=== PATIENT | male | born 1960 | race Caucasian/White ===

== ENCOUNTER 2020-04-30 01:14 | Emergency (ER) | payer MEDICARE, MEDICAID ==
[~2020-04-30] VITALS: Ht 170.2 cm; Wt 90.9 kg
[~2020-04-30 01:14] MED LIST: FAMO40TA73 PO
[2020-04-30 02:03] VITALS: BP 178/118
== END 2020-04-30 02:04 | disposition home or self-care (01) ==
LOC: ER 01:15
DX: M79.602 Pain in left arm (principal); E78.00 Pure hypercholesterolemia, unspecified; I10 Essential (primary) hypertension; G89.29 Other chronic pain; Z98.890 Other specified postprocedural states; Z56.0 Unemployment, unspecified; Z88.8 Allergy status to other drugs, medicaments and biological substances; Z79.899 Other long term (current) drug therapy
CPT/HCPCS: 93005; 99283

== ENCOUNTER 2024-03-23 05:27 | Day surgery (SDC) | payer BC, MEDICAID ==
[2024-03-17 15:06] LABS: BASOPHILS % (AUTO) 0.5 % (0-1); EOSINOPHILS # (AUTO) 0.2 X10'3 (0-0.9); EOSINOPHILS % (AUTO) 2.6 % (0-6); LYMPHOCYTES # (AUTO) 2.2 X10'3 (1.1-4.8); LYMPHOCYTES % (AUTO) 24.2 % (21-51); MEAN CORPUSCULAR HEMOGLOBIN 30.8 PG (27.0-31.0); MEAN CORPUSCULAR HGB CONC 34.1 g/dL (33.0-36.5); MEAN CORPUSCULAR VOLUME 90.3 FL (78-98); MONOCYTES # (AUTO) 0.9 X10'3 (0-0.9); NEUTROPHILS # (AUTO) 5.7 X10'3 (1.8-7.7); NEUTROPHILS % (AUTO) 62.7 % (42-75); PRE OP HEMATOCRIT 51.7 % (42.0-52.0); PRE OP HEMOGLOBIN 17.6 g/dL (14.0-17.9); PRE OP PLATELET COUNT 443 X10'3 (140-440); PRE OP WHITE BLOOD COUNT 9.1 10'3 (4.8-10.8); RED BLOOD COUNT 5.72 X10'6 (4.70-6.10); RED CELL DISTRIBUTION WIDTH 14.8 % (11.5-14.5)
[2024-03-17 15:12] LABS: ALBUMIN 4.4 G/DL (3.4-5.0); ALBUMIN/GLOBULIN RATIO 1.1 (1.1-1.5); ALKALINE PHOSPHATASE 75 IU/L (46-116); BLOOD UREA NITROGEN 19 MG/DL (7-18); BUN/CREATININE RATIO 11.4 (10.0-20.0); CALCIUM 10.2 MG/DL (8.5-10.1); CHLORIDE 100 MMOL/L (99-107); CREATININE 1.67 MG/DL (0.60-1.10); PRE OP ALT 43 U/L (30-65); PRE OP ANION GAP 7 (8-16); PRE OP AST 28 U/L (10-37); PRE OP BILIRUB, TOTAL 0.8 MG/DL (0.0-1.0); PRE OP GLUCOSE 110 MG/DL (70-104); PRE OP POTASSIUM 3.8 MMOL/L (3.4-5.1); PRE OP SODIUM 137 MMOL/L (135-145); TOTAL PROTEIN 8.4 G/DL (6.4-8.2); eGFR 42 ML/MIN
[~2024-03-23] VITALS: Ht 172.7 cm; Wt 80.4 kg
[~2024-03-23 05:27] MED LIST changes: +ATOR80TA PO; +CHOL100024 PO; +COLC0.6C3 PO; +DAPA10TA PO; -FAMO40TA73 PO; +FENO160T8 PO; +IBUP-1984 PO; +METO-395 PO; +PANT40TA54 PO; +SACU1TAB PO; +SPIR25TA5 PO
[2024-03-23] MEDS ORDERED: tranexamic acid inj. 1,000 MG in normal saline IV soln 100ML IV ONE (05:30)
[2024-03-23] MEDS ORDERED: DOCUMENT DATE & TIME OF BETA-BLOCKER PO ONE (05:30)
[2024-03-23] MEDS: famotidine 20mg tablet PO ONE (05:54)
[2024-03-23] MEDS: vancomycin 1,500 MG in NS 300ml IV soln IV ONE (05:55)
[2024-03-23] MEDS: cefazolin 2gm/D5W 100mL 100 ML IV ONE (05:56)
[2024-03-23] MEDS: ringers solution, lacted 1,000 ML IV SCH (05:56)
[2024-03-23] MEDS ORDERED: vancomycin 1,000mg inj ONE (06:47)
[2024-03-23] MEDS ORDERED: morphine 10mg/ml inj. ONE (06:47)
[2024-03-23] MEDS ORDERED: ROPIVAcaine 0.5% (5mg/ml) 30ml vial ONE ×2 (06:47→07:13)
[2024-03-23] MEDS ORDERED: epiNEPHrine 1 mg/ml inj ONE (06:47)
[2024-03-23] MEDS ORDERED: BUPIVACAINE/MELOXICAM 14 ML VIAL IL ONE (06:48)
[2024-03-23 06:57] VITALS: RESP 16; O2SAT 96
[2024-03-23 07:06] VITALS: BP 99/72; PULSE 72; RESP 16; TEMP 97.6; O2SAT 96
== END 2024-03-23 12:03 | disposition home or self-care (01) ==
LOC: PAS 05:27
PROVIDERS: ATTEND Orthopaedic Surgery
DX: M17.12 Unilateral primary osteoarthritis, left knee (principal); Z53.8 Procedure and treatment not carried out for other reasons; K21.9 Gastro-esophageal reflux disease without esophagitis; M10.9 Gout, unspecified; G47.30 Sleep apnea, unspecified
CPT/HCPCS: 36415; 80053; 82948; 85025; 87081; J0171; J0690; J2274; J2795; J3370; J3490; J7120

== ENCOUNTER 2024-04-06 05:28 | Inpatient (IN) | payer BC, MEDICAID ==
[2024-03-29] MEDS: tranexamic acid inj. 1,000 MG in normal saline IV soln 100ML IV ONE (05:30)
[2024-03-29] MEDS: vancomycin 1,500 MG in NS 300ml IV soln IV ONE (05:30)
[2024-03-29] MEDS: DOCUMENT DATE & TIME OF BETA-BLOCKER PO ONE (05:30)
[2024-03-29] MEDS: cefazolin 2gm/D5W 100mL 100 ML IV ONE (05:30)
[2024-04-06] VITALS (34 sets, daily range): BP systolic 73–120; BP diastolic 48–73; PULSE 39–71; RESP 10–23; TEMP 97.1–98; O2SAT 93–100
[~2024-04-06] VITALS: Ht 172.7 cm; Wt 97.9 kg
[~2024-04-06 05:28] MED LIST changes: -IBUP-1984 PO; +ringers solution, lacted 1,000 ML IV SCH
[2024-04-06] MEDS: cefazolin 2gm/D5W 100mL 100 ML IV ONE (05:30)
[2024-04-06] MEDS: DOCUMENT DATE & TIME OF BETA-BLOCKER PO ONE (05:30)
[2024-04-06] MEDS: famotidine 20mg tablet PO ONE ×2 (05:30→06:20)
[2024-04-06] MEDS: vancomycin 1,500 MG in NS 300ml IV soln IV ONE (06:20)
[2024-04-06] MEDS ORDERED: ROPIVAcaine inj 200 MG, epiNEPHrine inj 0.6 MG, morphine 10mg/ml inj. 5 MG in normal sa... IU ONE (06:20)
[2024-04-06] MEDS: ringers solution, lacted 1,000 ML IV SCH (06:20)
[2024-04-06] MEDS: tranexamic acid inj. 1,000 MG in normal saline IV soln 100ML IV ONE (06:21)
[2024-04-06] MEDS: ROPIVAcaine inj 200 MG, epiNEPHrine inj 0.6 MG, morphine 10mg/ml inj. 5 MG in normal sa... IU ONE (06:50)
[2024-04-06] MEDS: vancomycin 1,000mg inj ONE (06:54)
[2024-04-06] MEDS: ketorolac trometh 30MG/ML vial 30 MG/ML VIAL ONE (06:54)
[2024-04-06] MEDS: BUPIVACAINE/MELOXICAM 14 ML VIAL IL ONE (06:55)
[2024-04-06] MEDS: tetracaine 1% (10mg/ml) pres. free inj. ONE (07:17)
[2024-04-06] MEDS ORDERED: meperidine/PF 25mg/ml syringe IV PRN (07:20)
[2024-04-06] MEDS ORDERED: proCHLORperazine 10 MG/2 ml inj IV PRN (07:20)
[2024-04-06] MEDS ORDERED: morphine 2 MG/ML inj. syringe IV PRN (07:20)
[2024-04-06] MEDS ORDERED: ondansetron/PF 4mg/2ml inj IV PRN ×2 (07:20→12:25)
[2024-04-06] MEDS ORDERED: hydrALAZINE 20mg/ml inj. IV PRN (07:20)
[2024-04-06] MEDS ORDERED: labetalol 20mg/4ml (5mg/ml) syringe IV PRN (07:20)
[2024-04-06] MEDS ORDERED: morphine 4 MG/ML inj SYRINge IV PRN (07:20)
[2024-04-06] MEDS ORDERED: ringers solution, lacted 1,000 ML IV SCH (07:20)
[2024-04-06] MEDS ORDERED: BUPIVAcaine/dex-water/PF 7.5 mg/ml 2ml ampul ONE (07:42)
[2024-04-06 07:48] LABS: BASOPHILS % (AUTO) 0.5 % (0-1); EOSINOPHILS # (AUTO) 0.2 X10'3 (0-0.9); EOSINOPHILS % (AUTO) 2.4 % (0-6); LYMPHOCYTES # (AUTO) 1.8 X10'3 (1.1-4.8); LYMPHOCYTES % (AUTO) 25.8 % (21-51); MEAN CORPUSCULAR HEMOGLOBIN 30.4 PG (27.0-31.0); MEAN CORPUSCULAR HGB CONC 33.8 g/dL (33.0-36.5); MEAN CORPUSCULAR VOLUME 90.1 FL (78-98); MEAN PLATELET VOLUME 7.5 FL (7.4-10.4); MONOCYTES # (AUTO) 0.7 X10'3 (0-0.9); MONOCYTES % (AUTO) 10.3 % (2-12); NEUTROPHILS # (AUTO) 4.2 X10'3 (1.8-7.7); PRE OP HEMATOCRIT 42.4 % (42.0-52.0); PRE OP HEMOGLOBIN 14.3 g/dL (14.0-17.9); PRE OP PLATELET COUNT 298 X10'3 (140-440); PRE OP WHITE BLOOD COUNT 6.9 10'3 (4.8-10.8); RED BLOOD COUNT 4.71 X10'6 (4.70-6.10); RED CELL DISTRIBUTION WIDTH 14.3 % (11.5-14.5)
[2024-04-06 07:49] LABS: ALANINE AMINOTRANSFERASE 33 U/L (12-78); ALBUMIN 3.7 G/DL (3.4-5.0); ALBUMIN/GLOBULIN RATIO 1.2 (1.1-1.5); ALKALINE PHOSPHATASE 45 IU/L (46-116); ANION GAP 10 (8-16); ASPARTATE AMINO TRANSFERASE 28 U/L (10-37); BILIRUBIN,TOTAL 0.9 MG/DL (0.1-1.0); BLOOD UREA NITROGEN 15 MG/DL (7-18); BUN/CREATININE RATIO 9.7 (10.0-20.0); CALCIUM 9.1 MG/DL (8.5-10.1); CHLORIDE 106 MMOL/L (99-107); CREATININE 1.54 MG/DL (0.60-1.10); GLUCOSE 95 MG/DL (70-104); POTASSIUM 3.3 MMOL/L (3.5-5.1); SODIUM 140 MMOL/L (135-145); TOTAL CARBON DIOXIDE 24.5 MMOL/L (24-32); TOTAL PROTEIN 6.9 G/DL (6.4-8.2); eCRCL 49 ML/MIN; eGFR 46 ML/MIN
[2024-04-06] MEDS ORDERED: MIDAZolam 1 MG/ML 5ML VIAL ONE (07:51)
[2024-04-06] MEDS ORDERED: propofol inj 20 ML IV ONE ×6 (08:07→11:05)
[2024-04-06] MEDS ORDERED: propofol inj 0 ML IV ONE (08:07)
[2024-04-06] MEDS ORDERED: ePHEDrine 50MG/ML INJ. ONE (08:15)
[2024-04-06] MEDS ORDERED: fentaNYL/PF 50MCG/1 ML 2ML syringe ONE (08:35)
[2024-04-06] MEDS ORDERED: phenylephrine 10mg/ml inj. -priapism dosing ONE (09:22)
[2024-04-06] MEDS ORDERED: 0.9 % SODIUM CHLORIDE 10 ML VIAL ONE ×2 (09:22)
[2024-04-06] MEDS ORDERED: ceFAZolin 1000mg inj ONE (10:51)
[2024-04-06] MEDS ORDERED: ROPIVAcaine 0.5% (5mg/ml) 30ml vial ONE (10:51)
[2024-04-06] MEDS: ROPIVAcaine 0.5% (5mg/ml) 30ml vial IJ ONE (11:13)
[2024-04-06] MEDS ORDERED: acetaminophen 325mg tablet PO PRN (12:25)
[2024-04-06] MEDS ORDERED: magnesium hydroxide 30ml (MOM) UD suspension PO PRN (12:25)
[2024-04-06] MEDS ORDERED: bisacodyl 10mg suppository rectal RC PRN (12:25)
[2024-04-06] MEDS ORDERED: naloxone 0.4 mg/ml inj IV PRN (12:25)
[2024-04-06] MEDS ORDERED: diphenhydrAMINE 25mg capsule PO PRN ×2 (12:25)
[2024-04-06] MEDS ORDERED: HYDROmorphone 1 mg/ml syringe IV PRN (12:25)
[2024-04-06] MEDS: ROPIVAcaine 0.2%/PF PUMP/bolus 545 ML ADDCANAL SCH (12:45)
[2024-04-06] MEDS: meperidine/PF 25mg/ml syringe IV PRN (12:55)
[2024-04-06] MEDS: acetaminophen 1,000mg/100ml IV 100 ML IV ONE (13:11)
[2024-04-06] MEDS: ketorolac trometh 30MG/ML vial 30 MG/ML VIAL IM ONE (13:15)
[2024-04-06] MEDS: ePHEDrine 50MG/ML INJ. IV PRN (13:40)
[2024-04-06] MEDS: ketorolac trometh 30MG/ML vial 30 MG/ML VIAL IV ONE (13:47)
[2024-04-06] MEDS: oxyCODONE IR 5mg (immed. release) tablet PO PRN (14:25)
[2024-04-06] MEDS: ceFAZolin/D5W- 1GM premix 50 ML IV SCH (19:13)
[2024-04-06] MEDS: tranexamic acid inj. 1,000 MG in normal saline 100ml IV soln 90 ML IV ONE (19:13)
[2024-04-06] MEDS: potassium Cl 20mEq in NS 1,000 ML IV SCH (19:13)
[2024-04-06] MEDS: vancomycin/NS 1 GM ADD-VANTAGE 250 ML IV SCH (20:53)
[2024-04-06] MEDS: sennosides 8.6mg tablet PO SCH (20:54)
[2024-04-06] MEDS: acetaminophen 325mg tablet PO SCH (20:54)
[2024-04-06] MEDS: gabapentin 300mg capsule PO SCH (20:54)
[2024-04-06] MEDS: HYDROmorphone inj. 0.5 MG/0.5 ML DISP.SYRIN IV PRN (20:57)
[2024-04-07 02:00] VITALS: BP 105/56; PULSE 65; RESP 18; TEMP 98; O2SAT 96
[2024-04-07 06:00] VITALS: BP 100/61; PULSE 84; RESP 18; TEMP 97.4; O2SAT 92
[2024-04-07] MEDS ORDERED: magnesium sulf-water 2g/50mL 50 ML IV PRN (07:50)
[2024-04-07] MEDS ORDERED: potassium Cl 20 mEq SR tablet PO PRN ×2 (07:50)
[2024-04-07] MEDS ORDERED: magnesium Cl slow-release 64mg tablet PO PRN (07:50)
[2024-04-07] MEDS ORDERED: potassium Cl 40MEQ/1/2NS 520ml 520 ML IV PRN (07:50)
[2024-04-07] MEDS ORDERED: magnesium sulf-water 4G/100mL 100 ML IV PRN (07:50)
[2024-04-07 08:00] VITALS: RESP 16; O2SAT 94
[2024-04-07] MEDS: spironolactone 25 MG tablet PO SCH (08:00)
[2024-04-07] MEDS: sacubitril/valsartan 24mg-26mg tablet PO SCH (08:00)
[2024-04-07] MEDS: Fenofibrate 160 MG TABLET PO SCH (08:00)
[2024-04-07] MEDS: K and/or MAG REPLACEMENT MC SCH (08:00)
[2024-04-07] MEDS: metoprolol succinate 25mg (24-HOUR) SR. Tablet PO SCH (08:00)
[2024-04-07 08:15] LABS: BASOPHILS % (AUTO) 0.3 % (0-1); EOSINOPHILS # (AUTO) 0.1 X10'3 (0-0.9); EOSINOPHILS % (AUTO) 0.6 % (0-6); HEMATOCRIT 35.2 % (42.0-52.0); HEMOGLOBIN 11.8 g/dl (14.0-17.9); LYMPHOCYTES # (AUTO) 1.2 X10'3 (1.1-4.8); LYMPHOCYTES % (AUTO) 10.7 % (21-51); MEAN CORPUSCULAR HEMOGLOBIN 30.3 PG (27.0-31.0); MEAN CORPUSCULAR HGB CONC 33.5 g/dL (33.0-36.5); MEAN CORPUSCULAR VOLUME 90.5 FL (78-98); MEAN PLATELET VOLUME 7.8 FL (7.4-10.4); MONOCYTES # (AUTO) 1.1 X10'3 (0-0.9); MONOCYTES % (AUTO) 10.2 % (2-12); NEUTROPHILS # (AUTO) 8.8 X10'3 (1.8-7.7); NEUTROPHILS % (AUTO) 78.2 % (42-75); PLATELET COUNT 265 X10'3 (140-440); RED BLOOD COUNT 3.88 X10'6 (4.70-6.10); RED CELL DISTRIBUTION WIDTH 14.6 % (11.5-14.5); WHITE BLOOD COUNT 11.3 X10'3 (4.5-11.0)
[2024-04-07] MEDS: atorvastatin 20mg tablet PO SCH (08:15)
[2024-04-07] MEDS: pantoprazole 40mg Tablet.DR PO SCH (08:16)
[2024-04-07] MEDS: colchicine 0.6mg tablet PO SCH (08:16)
[2024-04-07] MEDS: DAPAGLIFLOZIN 10MG TABLET PO SCH (08:17)
[2024-04-07 08:20] LABS: ALANINE AMINOTRANSFERASE 23 U/L (12-78); ALBUMIN 2.7 G/DL (3.4-5.0); ALKALINE PHOSPHATASE 37 IU/L (46-116); ANION GAP 6 (8-16); ASPARTATE AMINO TRANSFERASE 23 U/L (10-37); BILIRUBIN,TOTAL 0.8 MG/DL (0.1-1.0); BLOOD UREA NITROGEN 10 MG/DL (7-18); CALCIUM 8.1 MG/DL (8.5-10.1); CHLORIDE 109 MMOL/L (99-107); CREATININE 1.42 MG/DL (0.60-1.10); GLUCOSE 130 MG/DL (70-104); POTASSIUM 3.6 MMOL/L (3.5-5.1); SODIUM 140 MMOL/L (135-145); TOTAL CARBON DIOXIDE 24.8 MMOL/L (24-32); TOTAL PROTEIN 5.5 G/DL (6.4-8.2); eCRCL 52 ML/MIN; eGFR 50 ML/MIN
[2024-04-07] MEDS: enoxaparin 40mg/0.4ml syringe SQ SCH (08:32)
[2024-04-07] MEDS: normal saline 1000ml 1,000 ML IV ONE (14:28)
[2024-04-07 18:00] VITALS: BP 122/64; PULSE 82; RESP 14; TEMP 98.3; O2SAT 96
[2024-04-07 19:30] VITALS: RESP 18; O2SAT 96
[2024-04-07] MEDS: celeCOXIB 100mg capsule PO SCH (19:41)
[2024-04-07 22:00] VITALS: BP 124/67; PULSE 93; RESP 16; TEMP 98.1; O2SAT 91
[2024-04-08 06:00] VITALS: BP 114/59; PULSE 84; RESP 17; TEMP 98.2; O2SAT 96
[2024-04-08] MEDS: oxyCODONE IR 5mg (immed. release) tablet PO PRN (06:54)
[2024-04-08 07:00] VITALS: RESP 17; O2SAT 96
[2024-04-08 10:00] VITALS: BP 91/51; PULSE 76; RESP 14; TEMP 97.2; O2SAT 96
[2024-04-08] MEDS ORDERED: acetaminophen 325mg tablet PO PRN (12:25)
[2024-04-08] MEDS ORDERED: SACU1TAB PO (13:06)
[2024-04-08] MEDS: ROPIVAcaine 0.2% (10 MG/5 ML) BOLUS INJECTION ADDCANAL PRN (13:11)
[2024-04-08 18:00] VITALS: BP 100/57; PULSE 66; RESP 17; TEMP 98.7; O2SAT 96
[2024-04-08 22:00] VITALS: BP 102/60; PULSE 81; RESP 18; TEMP 98.7; O2SAT 96
[2024-04-09 06:00] VITALS: BP 101/62; PULSE 71; RESP 18; TEMP 98.1; O2SAT 94
[2024-04-09 07:00] VITALS: RESP 18; O2SAT 94
[2024-04-09 08:58] VITALS: BP_SYST 115; PULSE 78
[2024-04-09 09:25] VITALS: RESP 16
[2024-04-09] MEDS ORDERED: HYDR-3965 PO (15:31)
== END 2024-04-09 14:20 | disposition home health service (06) | DRG 470 ==
LOC: PAS 05:28 → ORTHO 4S 12:32
PROVIDERS: ADMIT Orthopaedic Surgery; ATTEND Orthopaedic Surgery
PROC: 0SRD0J9 Replacement of Left Knee Joint with Synthetic Substitute, Cemented, Open Approach (ICD-10-PCS; principal; 2024-04-06 07:42)
DX: M17.12 Unilateral primary osteoarthritis, left knee (principal); I50.22 Chronic systolic (congestive) heart failure; M21.162 Varus deformity, not elsewhere classified, left knee; I11.0 Hypertensive heart disease with heart failure; F12.10 Cannabis abuse, uncomplicated; I95.1 Orthostatic hypotension; Z71.41 Alcohol abuse counseling and surveillance of alcoholic; Z88.8 Allergy status to other drugs, medicaments and biological substances; Z79.899 Other long term (current) drug therapy
CPT/HCPCS: 36415; 73560; 80053; 82948; 85025; 93306; 93931; 93971; 97110; 97116; 97161; 97530; A4215; A6253; A6258; A6446; A6449; A6454; A7000; C1713; C1758; C1776; C9250; G0378; J0131; J0171; J0690; J1170; J1650; J1885; J2175; J2250; J2274; J2370; J2704; J2795; J3010; J3370; J3480; J3490; J7030; J7120

== ENCOUNTER 2024-09-09 16:41 | Emergency (ER) | payer BC, MEDICAID ==
[~2024-09-09] VITALS: Ht 170.2 cm; Wt 79.5 kg
[~2024-09-09 16:41] MED LIST changes: +ATOR-429 PO; -ATOR80TA PO; -ringers solution, lacted 1,000 ML IV SCH
[2024-09-09 16:48] VITALS: BP 151/97; PULSE 84; RESP 15; TEMP 97; O2SAT 98
== END 2024-09-09 18:50 | disposition left against medical advice (07) ==
LOC: ER 16:42
DX: M25.475 Effusion, left foot (principal); Z88.8 Allergy status to other drugs, medicaments and biological substances; Z53.21 Procedure and treatment not carried out due to patient leaving prior to being seen by health care provider

== ENCOUNTER 2024-11-07 06:13 | Day surgery (SDC) | payer BC, MEDICAID ==
[~2024-11-07] VITALS: Ht 172.7 cm; Wt 82.6 kg
[2024-11-07] VITALS (8 sets, daily range): BP systolic 96–143; BP diastolic 59–87; PULSE 60–77; RESP 9–17; TEMP 97.6; O2SAT 95–100
[2024-11-07] MEDS: DOCUMENT DATE & TIME OF BETA-BLOCKER PO ONE (04:30)
[2024-11-07] MEDS: ceFAZolin 2gm in dextrose, iso 50 ML IV ONE (05:30)
[~2024-11-07 06:13] MED LIST changes: +ALLO100T25 PO; +IBUP-1986 PO; +PROP80TA4 PO
[2024-11-07] MEDS ORDERED: BUPIVAcaine 2.5mg/ml inj 50ml vial (contains preservative) ONE (06:35)
[2024-11-07] MEDS ORDERED: BUPIVAcaine/PF 2.5mg/ml (0.25%) 10ml vial ONE (06:35)
[2024-11-07] MEDS ORDERED: LIDOcaine 2% (20mg/ml) 5ml vial ONE (06:35)
[2024-11-07] MEDS ORDERED: SACU1TAB PO (07:06)
[2024-11-07] MEDS: famotidine 20mg tablet PO ONE (07:07)
[2024-11-07] MEDS: ringers solution, lacted 1,000 ML IV SCH (07:07)
[2024-11-07 07:26] LABS: ALBUMIN 3.4 G/DL (3.4-5.0); ALBUMIN/GLOBULIN RATIO 1.1 (1.1-1.5); ALKALINE PHOSPHATASE 76 IU/L (46-116); BLOOD UREA NITROGEN 15 MG/DL (7-18); BUN/CREATININE RATIO 12.4 (10.0-20.0); CALCIUM 8.9 MG/DL (8.5-10.1); CHLORIDE 107 MMOL/L (99-107); CREATININE 1.21 MG/DL (0.60-1.10); PRE OP ANION GAP 10 (8-16); PRE OP AST 53 U/L (10-37); PRE OP BILIRUB, TOTAL 0.6 MG/DL (0.0-1.0); PRE OP GLUCOSE 106 MG/DL (70-104); PRE OP POTASSIUM 3.5 MMOL/L (3.4-5.1); PRE OP SODIUM 142 MMOL/L (135-145); TOTAL CARBON DIOXIDE 24.6 MMOL/L (24-32); TOTAL PROTEIN 6.5 G/DL (6.4-8.2); eCRCL 60 ML/MIN; eGFR 60 ML/MIN
[2024-11-07 07:33] LABS: PRE OP ALT 80 U/L (30-65)
[2024-11-07 07:39] LABS: BASOPHILS % (AUTO) 0.6 % (0-1); EOSINOPHILS # (AUTO) 0.2 X10'3 (0-0.9); EOSINOPHILS % (AUTO) 3.9 % (0-6); LYMPHOCYTES # (AUTO) 1.5 X10'3 (1.1-4.8); LYMPHOCYTES % (AUTO) 26.8 % (21-51); MEAN CORPUSCULAR HEMOGLOBIN 29.1 PG (27.0-31.0); MEAN CORPUSCULAR HGB CONC 33.9 g/dL (33.0-36.5); MEAN PLATELET VOLUME 7.4 FL (7.4-10.4); MONOCYTES # (AUTO) 0.7 X10'3 (0-0.9); MONOCYTES % (AUTO) 13.4 % (2-12); NEUTROPHILS # (AUTO) 3.1 X10'3 (1.8-7.7); NEUTROPHILS % (AUTO) 55.3 % (42-75); PRE OP HEMATOCRIT 45.2 % (42.0-52.0); PRE OP HEMOGLOBIN 15.3 g/dL (14.0-17.9); PRE OP PLATELET COUNT 330 X10'3 (140-440); PRE OP WHITE BLOOD COUNT 5.6 10'3 (4.8-10.8); RED BLOOD COUNT 5.26 X10'6 (4.70-6.10); RED CELL DISTRIBUTION WIDTH 15.4 % (11.5-14.5)
[2024-11-07] MEDS ORDERED: morphine 2 MG/ML inj. syringe IV PRN (08:55)
[2024-11-07] MEDS ORDERED: meperidine/PF 25mg/ml syringe IV PRN ×3 (08:55)
[2024-11-07] MEDS ORDERED: morphine 4 MG/ML inj SYRINge IV PRN (08:55)
[2024-11-07] MEDS ORDERED: labetalol 20mg/4ml (5mg/ml) syringe IV PRN (08:55)
[2024-11-07] MEDS ORDERED: proCHLORperazine 10 MG/2 ml inj IV PRN (08:55)
[2024-11-07] MEDS ORDERED: ondansetron/PF 4mg/2ml inj IV PRN (08:55)
[2024-11-07] MEDS ORDERED: ringers solution, lacted 1,000 ML IV SCH (08:55)
[2024-11-07] MEDS ORDERED: hydrALAZINE 20mg/ml inj. IV PRN (08:55)
[2024-11-07] MEDS ORDERED: fentaNYL/PF 50MCG/1 ML 2ML syringe ONE (09:18)
[2024-11-07] MEDS ORDERED: propofol inj 20 ML IV ONE (09:28)
[2024-11-07] MEDS ORDERED: midazolam 1 mg/ML 2ml injection ONE (09:28)
[2024-11-07] MEDS: acetaminophen 1,000mg/100ml IV 100 ML IV PRN (09:44)
== END 2024-11-07 10:24 | disposition home or self-care (01) ==
LOC: PAS 06:13
PROVIDERS: ATTEND Orthopaedic Surgery Hand Surgery
DX: G56.01 Carpal tunnel syndrome, right upper limb (principal); M10.9 Gout, unspecified; G62.9 Polyneuropathy, unspecified; I10 Essential (primary) hypertension; K21.9 Gastro-esophageal reflux disease without esophagitis; M17.12 Unilateral primary osteoarthritis, left knee; M18.12 Unilateral primary osteoarthritis of first carpometacarpal joint, left hand; G47.30 Sleep apnea, unspecified; E78.00 Pure hypercholesterolemia, unspecified; Z96.652 Presence of left artificial knee joint; Z79.899 Other long term (current) drug therapy; Z98.890 Other specified postprocedural states; Z88.8 Allergy status to other drugs, medicaments and biological substances; Z72.89 Other problems related to lifestyle
CPT/HCPCS: 36415; 64721; 80053; 82948; 85025; 93005; J0131; J0690; J2003; J2250; J2704; J3010; J3490; J7030; J7120; Z7506; Z7512; A4215; A6449